=== PATIENT | male | born 1975 | race Caucasian/White ===

== ENCOUNTER 2020-08-09 12:37 | Outpatient (CLI) | payer OTHER, SELFPAY ==
[2020-08-10 14:04] LABS: SARS-CoV-2 RNA PCR Positive
== END 2020-08-09 12:38 | disposition home or self-care (01) ==
PROVIDERS: PCP Physician Assistant; Visit Provider Physician Assistant
DX: U07.1 COVID-19 (principal)
CPT/HCPCS: 87635; C9803; U0003

== ENCOUNTER 2023-06-17 13:47 | Emergency (ER) | payer OTHER, SELFPAY ==
[2023-06-17] VITALS (9 sets, daily range): BP systolic 124–150; BP diastolic 65–91; PULSE 72–82; RESP 16–18; TEMP 36.3; O2SAT 94–97
--- NOTE | ~2023-06-17 | CT_ITS ---
EXAMINATION: CT abdomen pelvis w con DATE: 06/17/2023 15:21 INDICATION: Generalized abdominal pain, nausea and vomiting. TECHNIQUE: Computed tomography (CT) of the abdomen and pelvis was performed with 100 cc Omnipaque 350 intravenous contrast. The dose-length product was 1462.90 mGy-cm. Automated exposure control and ite rative reconstruction technique were employed. COMPARISON: None. FINDINGS: Lung bases unremarkable. Heart size normal. No significant pleural or pericardial effusion. No significant vascular abnormality. There is a retroaortic left renal vein. Fatty infiltration of t he liver. The spleen, pancreas, adrenal glands and kidneys are unremarkable. There are dilated small bowel loops with air-fluid levels with transition in the right mid abdomen, axial image 114, consiste nt with obstruction. No evidence for perforation or abscess. There are several loops of mildly thicke trent small bowel which may relate to motility or underlying enteritis. The spleen, pancreas, adrenal glands and kidneys are unremarkable. Gallbladder is present. No lymphad enopathy. No free air or free fluid. IMPRESSION: 1. Small bowel obstruction with transition in the right mid abdomen. Several loops of mildly thickene d small bowel wall thickening and mucosal enhancement are present, suspicious for underlying enteriti s. Reviewed, dictated and finalized at location B. IMPRESSION: 1. Small bowel obstruction with transition in the right mid abdomen. Several lo ops of mildly thickened small bowel wall thickening and mucosal enhancement are present, suspicious for underlying enteritis.
--- NOTE | 2023-06-17 14:14 | ED.GENADULT ---
HPI - General Adult General Chief complaint: Abdominal Pain Stated complaint: abdominal pain Time Seen by Provider: 06/17/23 13:53 History of Present Illness HPI narrative: 48-year-old male presenting with abdominal pain. Patient states his symptoms started approximately 4 days ago. He describes his symptoms as epigastric abdominal pain as well as nausea vomiting and diarrhea. He denies any known sick contacts or injury. Onset (ago): day(s) Related Data Home Medications Medication Instructions Recorded Confirmed No Home Medications 06/17/23 06/17/23 Allergies Allergy/AdvReac Type Severity Reaction Status Date / Time No Known Allergies Allergy Verified 06/17/23 13:55 Exam Narrative: Tenderness to palpation in epigastric region. Negative Lui's. Negative McBurney's. All of the systems otherwise unremarkable and negative. Course Vital Signs Vital signs: Vital Signs Temperature 36.3 C L 06/17/23 13:53 Pulse Rate 81 06/17/23 13:53 Respiratory Rate 17 06/17/23 13:53 Blood Pressure 150/84 H 06/17/23 13:53 Pulse Oximetry 97 06/17/23 13:53 Oxygen Delivery Room Air 06/17/23 13:53 Temperature 36.3 C L 06/17/23 13:57 Pulse Rate 81 06/17/23 13:57 Respiratory Rate 17 06/17/23 13:57 Blood Pressure 150/84 H 06/17/23 13:57 Pulse Oximetry 97 06/17/23 13:57 Oxygen Delivery Room Air 06/17/23 13:57 Medical Decision Making [facility] Narrative Medical decision making narrative: my interpretation official read of imaging demonstrates bowel obstruction. No emergent laboratory derangements. Patient remains mildly tender. He is not nauseous or vomiting at this time. I did consult and discussed case with Dr. De La O the surgeon at [facility]. Patient to be transferred to their facility and accepted under the hospitalist service. Patient amenable to this plan. He is awaiting transport. Vital Signs Vital Signs: Vital Signs Temperature 36.3 C L 06/17/23 13:53 Pulse Rate 81 06/17/23 13:53 Respiratory Rate 17 06/17/23 13:53 Blood Pressure 150/84 H 06/17/23 13:53 Pulse Oximetry 97 06/17/23 13:53 Oxygen Delivery Room Air 06/17/23 13:53 Temperature 36.3 C L 06/17/23 13:57 Pulse Rate 81 06/17/23 13:57 Respiratory Rate 17 06/17/23 13:57 Blood Pressure 150/84 H 06/17/23 13:57 Pulse Oximetry 97 06/17/23 13:57 Oxygen Delivery Room Air 06/17/23 13:57 Lab Data Lab results reviewed: Yes I reviewed the patient's lab results. 06/17/23 14:27 06/17/23 14:27 Labs: Lab Results 06/17/23 Range/Units 14:27 WBC 6.1 (4.8-10.8) K/mm3 RBC 5.68 (4.70-6.10) M/mm3 Hgb 16.9 (14.0-18.0) g/dL Hct 50.7 (40.0-54.0) % MCV 89.3 (78.0-102.0) fL MCH 29.8 (27.0-31.0) pg MCHC 33.3 (32.0-36.0) g/dL RDW 12.3 (11.6-14.4) % Plt Count 247 (150-420) K/mm3 MPV 11.2 H (8.7-11.0) fl Immature Gran % (Auto) 0.3 H (0.0-0.0) % Neut % (Auto) 64.8 (50.0-70.0) % Lymph % (Auto) 22.3 (18.0-42.0) % [place] % (Auto) 9.6 (2.0-11.0) % Eos % (Auto) 2.3 (1.0-6.0) % Baso % (Auto) 0.7 (0.0-1.0) % Lymph # (Auto) 1.37 (1.10-4.50) K/mm3 [place] # (Auto) 0.59 (0.10-0.90) K/mm3 Eos # (Auto) 0.14 (0.02-0.50) K/mm3 Baso # (Auto) 0.04 (0.00-0.10) K/mm3 Abs Immat Gran (auto) 0.02 H (0.00-0.00) K/mm3 Absolute Neuts (auto) 4.0 (1.7-7.2) K/mm3 Absolute Nucleated RBC 0.00 (0.00-0.00) K/mm3 Nucleated RBC % 0.0 (0-0.0) % Sodium 138 (136-145) mmol/L Potassium 3.6 (3.5-5.1) mmol/L Chloride 105 (98-108) mmol/L Carbon Dioxide 25 (21-32) mmol/L Anion Gap 8 (8-16) mmol/L BUN 12 (7-18) mg/dL Creatinine 0.99 (0.70-1.30) mg/dL Estim Creat Clear Calc 109 ml/min Estimated GFR > 60 (59 - ) Glucose 170 H (70-99) mg/dL Calculated Osmolality 289 (285-295) mOsm/kg Calcium 8.8 (8.5-10.1) mg/dL Total Bilirubin 0.6 (0.00-1.00) mg/dL AST 36 (15-37) U/L ALT 69 H (16
--- NOTE | 2023-06-17 14:16 | ECG_ITS ---
Measurements Intervals [place] Rate: 76 P: 31 SD: 152 QRS: -3 QRSD: 102 T: -15 QT: 382 QTc: 432 Interpretive Statements SINUS RHYTHM MINIMAL Q WAVES- HIGH LATERAL LEADS BORDERLINE ST-T WAVE ABNORMALITY- INFERIOR LEADS BORDERLINE ECG NO PREVIOUS ECG AVAILABLE FOR COMPARISON Electronically Signed On 06-17-2023 14:58:16 CDT by Brandon Nieto D.O.
[2023-06-17] MEDS: KETOROLAC 30 MG/ML VIAL (*BKC) IV PUSH (14:23)
[2023-06-17] MEDS: SODIUM CHLORIDE 0.9% IV 1,000 ML 999 ML IV CONT (14:24)
[2023-06-17 14:42] LABS: Basophils Absolute Auto 0.04 K/mm3 (0.00-0.10); Basophils Percent Auto 0.7 % (0.0-1.0); Eosinophils Absolute Auto 0.14 K/mm3 (0.02-0.50); Eosinophils Percent Auto 2.3 % (1.0-6.0); Hematocrit 50.7 % (40.0-54.0); Hemoglobin 16.9 g/dL (14.0-18.0); Immature Granulocyte Absolute 0.02 K/mm3 (0.00-0.00); Immature Granulocyte Percent A 0.3 % (0.0-0.0); Lymphocytes Absolute Auto 1.37 K/mm3 (1.10-4.50); Lymphocytes Percent Auto 22.3 % (18.0-42.0); Mean Corpuscular HGB Conc 33.3 g/dL (32.0-36.0); Mean Corpuscular Hemoglobin 29.8 pg (27.0-31.0); Mean Corpuscular Volume 89.3 fL (78.0-102.0); Mean Platelet Volume 11.2 fl (8.7-11.0); Monocytes Absolute Auto 0.59 K/mm3 (0.10-0.90); Monocytes Percent Auto 9.6 % (2.0-11.0); Neutrophils Percent Auto 64.8 % (50.0-70.0); Platelet Count Result 247 K/mm3 (150-420); Red Blood Count 5.68 M/mm3 (4.70-6.10); Red Cell Distribution Width 12.3 % (11.6-14.4); White Blood Count 6.1 K/mm3 (4.8-10.8)
[2023-06-17 15:00] LABS: Alanine Aminotransferase 69 U/L (16-63); Albumin Level 2.8 g/dL (3.4-5.0); Alkaline Phosphatase 158 U/L (46-116); Anion Gap 8 mmol/L (8-16); Aspartate Amino Transferase 36 U/L (15-37); Bilirubin,Total 0.6 mg/dL (0.00-1.00); Blood Urea Nitrogen 12 mg/dL (7-18); Calcium 8.8 mg/dL (8.5-10.1); Carbon Dioxide 25 mmol/L (21-32); Chloride 105 mmol/L (98-108); Estimated CRCL calculation 109 ml/min; Estimated Glomerular Filt Rate > 60; Glucose 170 mg/dL (70-99); Lipase 32 U/L (16-77); Osmolality Calculated 289 mOsm/kg (285-295); Potassium 3.6 mmol/L (3.5-5.1); Sodium 138 mmol/L (136-145); Total Protein 6.7 g/dL (6.4-8.2)
[2023-06-17 16:41] LABS: Troponin I < 0.012 ng/mL (0.000-0.034)
--- NOTE | 2023-06-17 19:08 | PC.NURSE ---
patient report received from BHAVESH Ardon. Patient awaiting EMS transfer to [facility]. Per Reva, update is ambulance is awaiting return from another trip/facility.
--- NOTE | 2023-06-17 19:52 | PC.NURSE ---
RN phoned receiving facility ([facility]) to notify staff of patient decision to sign out AMA prior to transporting and has decided to ride with a friend [facility].
== END 2023-06-17 19:20 | disposition left against medical advice (07) ==
PROVIDERS: Emergency Provider Emergency Medicine; PCP Physician Assistant
DX: K56.609 Unspecified intestinal obstruction, unspecified as to partial versus complete obstruction (principal)
CPT/HCPCS: 36415; 74177; 80053; 83690; 84484; 85025; 93005; 96361; 96374; 99284; J1885; J7030; Q9967

== ENCOUNTER 2023-06-17 21:06 | Inpatient (IN) | payer OTHER, SELFPAY ==
--- NOTE | ~2023-06-17 | XR_ITS ---
EXAMINATION: XR abdomen/kub 1V DATE: 06/18/2023 00:21 INDICATION: Nasogastric tube placement. TECHNIQUE: A supine view of the abdomen was obtained. COMPARISON: None. FINDINGS: The lower abdomen is excluded. The nasogastric tube tip is in the stomach. There is dilated small bowel. IMPRESSION: 1. Nasogastric tube tip in the stomach. 2. Dilated small bowel, likely adynamic ileus. Reviewed, dictated and finalized at location A.
--- NOTE | ~2023-06-17 | XR_ITS ---
EXAMINATION: XR sm bowel follow through WS DATE: 06/18/2023 14:05 INDICATION: Small bowel obstruction. TECHNIQUE: Oral contrast was administered, and a time course of radiographs of the abdomen was obtain ed. Fluoroscopy of the small bowel was not performed. Fluoroscopy exposure time was 0 minutes. The to ashley number of images was 11. COMPARISON: CT abdomen and pelvis 06/17/2023 FINDINGS: The nasogastric tube tip is in the stomach. There are multiple dilated loops of small bowel. The dist al small bowel is decompressed. There is no focal transition point. Transit time from the stomach to proximal colon was approximately 3 hours. IMPRESSION: 1. Dilated small bowel, consistent with adynamic ileus. Reviewed, dictated and finalized at location A.
--- NOTE | ~2023-06-17 | XR_ITS ---
EXAM: XR abdomen/kub 1V DATE: 06/17/2023 21:30 HISTORY: small bowel obstruction . COMPARISON: CT abdomen pelvis, same date. FINDINGS: Clear lung bases. Multiple dilated loops of small bowel. No organomegaly. No abnormal abdo jesis calcification. Regional bones and soft tissues normal for age. IMPRESSION: Small bowel obstruction. Reviewed, dictated and finalized at location K. IMPRESSION: Small bowel obstruction.
--- NOTE | 2023-06-17 20:32 | PC.NURSE ---
This patient, Jemal Hodges, was admitted to [facility] [place] Surg Room 327-01. Patient/family oriented to hospital policies and general routines including ID bracelet, bed and alarms, visiting hours, pain management, procedures, bathroom and other care routines, personal items, smoking policy, room service/diet, and visiting hours. Information on how to activate the Rapid Response Team has been discussed. Patient/Family are encouraged to report perceived risks to care and to ask questions if they do not understand what they are told or what they should do.
[2023-06-17 20:37] VITALS: BMI 36.8
[2023-06-17 20:58] VITALS: BP 141/92; PULSE 77; RESP 18; TEMP 36.7; O2SAT 98
--- NOTE | 2023-06-17 21:03 | PM.IMHP ---
H&P: HPI History of Present Illness Date/Time: 06/17/23 21:30 Chief Complaint: Small-bowel obstruction. Narrative: This is a very pleasant 48-year-old male with history of what sounds like pyloromyotomy as an who is being directly admitted to the medical floor from an outside facility ER with a small-bowel obstruction for treatment and surgery consultation. The patient provides the following history. Symptoms started last around lunchtime: ?it felt like my stomach knotted up. He developed nausea shortly thereafter vomited about an hour later which made him feel much better. On Saturday after eating pizza for lunch he developed similar symptoms, once again with vomiting. He was seen at urgent care and was told that he may have food poisoning. Unfortunately he has continued to have this pain in his stomach and he has not been able to hold down any food. He has been trying to drink a little bit of water here and there and sometimes he is able to hold down but other times he vomits not long after. He has not had a good bowel movement in the last 4 days and reports passing only small amounts of liquid stool. He has never had similar symptoms. He denies recent travel and sick contacts. No hematemesis, melena, or hematochezia. In the ED at the outside facility: Vital signs were stable blood pressures have been running a bit high. Labs were significant for WBC of 6.1, hemoglobin 16.9, hematocrit 50.7, platelet 247, sodium 138, potassium 3.6, BUN 12, creatinine 0.99, glucose 170, total bilirubin 0.6, AST 36, ALT 69, alkaline phosphatase 158, lipase 32. CT of the abdomen pelvis shows small-bowel obstruction with transition in the right mid abdomen with several loops of mildly thickened small bowel wall thickening and mucosal enhancement suspicious for enteritis. Transfer was initiated to [facility] as above. At the time my evaluation he continues to have this not like discomfort in his stomach. He has not vomited but he has not had any food or drink. Review of Systems Review of Systems: Twelve systems were reviewed and are negative except for as per HPI. [facility] Past Medical History Medical History No pertinent past medical history Surgical History Surgical History (Updated 06/18/23 @ 14:03 by Felicia Louis PA-C) History of abdominal surgery History of obstruction, possible pyloric stenosis as an infant, resulting in surgery immediately after . Social History Social History (Updated 06/18/23 @ 14:04 by Felicia Louis PA-C) Social History: Surrogate medical decision maker: Stephanie Hodges, spouse. Code status: Full code. Smoking status: Never smoker Alcohol intake: never Substance use: never Substance use type: does not use Lack of Transportation: No Lack of Food: Never True Current Housing: I Have Housing Concerned About Future Housing: No Difficulty Paying Gas/Electric Bills: No Difficulty Paying for Meds: No Currently Unemployed: No Education: High School Diploma/GED Difficulty w/ Childcare or Family Care: No Additional living arrangements comments: Lives with and children in [place]. Additional occupation/education comments: [employer]. Spiritual care concerns: No Meds Home Medications and Allergies Home Medications Medication Instructions Recorded Confirmed Type No Home Medications 06/17/23 06/17/23 History Allergies Allergy/AdvReac Type Severity Reaction Status Date / Time No Known Allergies Allergy Verified 06/17/23 13:55 Vital Signs Vital Signs - 24 hr 06/17/23 20:58 Temperature 98.0 F Pulse Rate 77 Respiratory Rate 18 Blood Pressure 141/92 H Pulse Oximetry 98 Exam Const: Other: Well-developed, mildly ill-appearing male sitting up in bed in no acute distress. Weight: 123.2 kg. BMI: 36.8. HENMT: Other: Normocephalic, atraumatic. Nares pain bilaterally
[2023-06-17] MEDS: LORazepam INJ (*CRX) 2 MG/ML VIAL 0.5 MG IV PUSH (23:21)
[2023-06-17] MEDS: LIDOCAINE HCL 2% GEL UROJET 10 ML PKG MUCOUS MEM (23:21)
--- NOTE | 2023-06-18 00:03 | PC.NURSE ---
ng inserted x1 attempt to 68 cm R nare awaiting KUB for confirmation of placement
[2023-06-18] MEDS: MORPHINE SULFATE (*CRX) 2 MG/ML INJ IV PUSH ×2 (00:57→05:41)
[2023-06-18] MEDS: ONDANSETRON INJ 4 MG/2 ML VIAL IV PUSH ×3 (00:57→14:52)
--- NOTE | 2023-06-18 00:57 | PC.NURSE ---
ab xr reviewed by do alarcon pt placed on low intermittent suction.
[2023-06-18] MEDS: BENZOCAINE/MENTHOL (*BKC) 18 EA LOZENGE 1 LOZENGE PO (05:42)
[2023-06-18 06:00] VITALS: BP 141/85; PULSE 93; RESP 16; TEMP 36.8; O2SAT 98
[2023-06-18 06:38] LABS: Hematocrit 48.1 % (42.0-52.0); Hemoglobin 15.9 g/dL (14.0-18.0); Mean Corpuscular HGB Conc 33.1 g/dl (32-36); Mean Corpuscular Volume 90.8 fl (80-100); Mean Platelet Volume 10.7 fl (7.4-10.4); Platelet Count Result 220 k/mm3 (150-375); Red Cell Distribution Width 12.3 % (11.5-14.5); White Blood Count 4.9 K/mm3 (4.5-10.0)
[2023-06-18 06:45] LABS: Hemoglobin A1C 7.9 % (<5.7)
[2023-06-18 06:47] LABS: Alanine Aminotransferase 60 U/L (6-50); Albumin Level 3.3 g/dL (3.5-5.1); Alkaline Phosphatase 120 U/L (38-126); Anion Gap 6 mmol/L (8-16); Aspartate Amino Transferase 41 U/L (17-59); Bilirubin,Total 0.9 mg/dL (0.2-1.3); Blood Urea Nitrogen 11 mg/dL (9-20); Carbon Dioxide 26 mmol/L (22-30); Chloride 105 mmol/L (98-107); Estimated CRCL calculation 119 ml/min; Estimated Glomerular Filt Rate > 60; Glucose 143 mg/dL (65-110); Potassium 3.6 mmol/L (3.4-5.0); Sodium 137 mmol/L (137-145)
[2023-06-18 08:00] VITALS: O2SAT 98
[2023-06-18] MEDS: DEXTROSE 5%/0.9% SOD CHL 1,000 ML 100 ML IV CONT (09:24)
[2023-06-18] MEDS: PANTOPRAZOLE SODIUM IV 40 MG VIAL IV PUSH (09:29)
--- NOTE | 2023-06-18 09:50 | PM.CNGS ---
Assessment and Plan Assessment and plan (1) Small bowel obstruction: Code(s): K56.609 - Unspecified intestinal obstruction, unspecified as to partial versus complete obstruction Status: Acute Assessment and Plan: CT suggests small bowel obstruction with transition point in the right mid abdomen. Continue NG decompression, bowel rest, and IV fluids. Already clinically improving. No peritoneal signs on exam. Will order water-soluble small-bowel follow-through today. (2) Gastroenteritis: Code(s): K52.9 - Noninfective gastroenteritis and colitis, unspecified Status: Acute Assessment and Plan: CT suggests possible enteritis. This correlates with his history of vomiting and diarrhea x 3-4 days. Continue medical treatment and IV fluid hydration. (3) Newly diagnosed diabetes: Code(s): E11.9 - Type 2 diabetes mellitus without complications Status: Acute Assessment and Plan: Elevated glucose on admission, hgb A1C 7.9. This is new for the patient. Management per primary service. Plan I have discussed the patient's case and plan of care with Dr. Moralez. Thank you for allowing us to see the patient in consultation and we will continue to follow along with you. History of Present Illness Consult details Consult date: 06/18/23 Reason for consult: other (Small-bowel obstruction) Requesting physician: Amanda Presley MD Narrative: This is a 47-year-old man who presented to [facility] for evaluation of abdominal pain and vomiting. He reports last he developed generalized abdominal pain following his lunch. The pain was so severe it made him vomit. He continued to vomit and developed diarrhea. He had multiple episodes of watery diarrhea over the next few days. Every time he ate, he continued to vomit. Saturday, he presented to the urgent care for evaluation. In the urgent care, they suggested he may have food poisoning and sent him home. He continued to have persistent abdominal pain with vomiting and diarrhea. He developed more bloating and his diarrhea resolved yesterday. Due to his persistent pain, he presented to the ER for evaluation. Labs were unremarkable. CT scan abdomen pelvis showed small-bowel obstruction with transition point in the right mid abdomen, also several loops of mildly thickened small bowel wall thickening and mucosal enhancement suspicious for underlying enteritis. The patient was admitted to the hospitalist service. He had an NG tube placed. Placement confirmed on x-ray. Our service has been consulted for the small-bowel obstruction. He is seen this morning. He had 400 cc out of his NG tube since placement. He reports feeling much better this morning. No longer having any abdominal pain. He reports flatus today. No bowel movements since liquid diarrhea yesterday morning. Denies ever having a bowel obstruction in the past. He does report having surgery as an , potentially for pyloric stenosis. No other abdominal surgeries. No one with similar sick symptoms. No recent travel. No recent use of antibiotics. Review of Systems Review of Systems: All systems reviewed & are unremarkable except as noted in HPI and below PMFSH Past Medical History Medical History No pertinent past medical history Surgical History Surgical History History of abdominal surgery History of obstruction, possible pyloric stenosis as an infant, resulting in surgery immediately after Social History Social History Smoking status: Never smoker Alcohol intake: never Substance use: never Substance use type: does not use Lack of Transportation: No Lack of Food: Never True Current Housing: I Have Housing Concerned About Future Housing: No Difficulty Paying Gas/Electric Bills: No Difficulty Pay
--- NOTE | 2023-06-18 11:04 | PM.IMPN ---
Progress Note: A&P Assessment and Plan (1) Small bowel obstruction: Code(s): K56.609 - Unspecified intestinal obstruction, unspecified as to partial versus complete obstruction Status: Acute Assessment and Plan: Surgery consult NG tube. NPO Monitor (2) Hyperglycemia: Code(s): R73.9 - Hyperglycemia, unspecified Status: Acute Assessment and Plan: Monitor blood sugars Subjective Date/time seen: 06/18/23 11:04 Interval history: NG tube in place. Abdominal pain improved. Exam Const: Other: Well-developed, mildly ill-appearing male sitting up in bed in no acute distress. Weight: 123.2 kg. BMI: 36.8. HENMT: Other: Normocephalic, atraumatic. Nares pain bilaterally. Tacky mucous membranes. Eyes: Other: Pupils are reactive. Extraocular motions intact. Sclerae anicteric. Neck: Other: Supple. Resp: Other: Respirations are nonlabored and lungs are clear to auscultation. Cardio: Other: Regular rate and rhythm with normal S1-S2. GI: Other: Abdomen is soft and distended. High-pitched tinkling bowel sounds heard in the right mid upper abdomen. He is tender to palpation and percussion in the periumbilical region. No guarding or rebound tenderness. Skin: Other: Warm and dry. Neuro: Other: Alert. Cranial nerves 2-12 are grossly intact. No gross focal deficits to casual conversation. Extrem: Other: No cyanosis, clubbing, or edema. Peripheral pulses intact. Psych: Other: Pleasant and cooperative. Appropriate mood and affect. Objective Data Vital Signs Vital Signs: Vital Signs - 24 hr 06/17/23 20:58 06/18/23 06:00 06/18/23 08:00 Temperature 98.0 F 98.2 F Pulse Rate 77 93 Respiratory Rate 18 16 Blood Pressure 141/92 H 141/85 H Pulse Oximetry 98 98 98 Oxygen Delivery Room Air Intake/Output Intake/Output: Intake & Output 06/15/23 06/16/23 06/17/23 06/18/23 23:59 23:59 23:59 23:59 Output Total 400 Balance -400 Meds/Results Medications: Active Medications Generic Name Dose Route Start Last Admin Trade Name Freq PRN Reason Stop Dose Admin Benzocaine 1 lozenge 06/18/23 05:37 06/18/23 05:42 Benzocaine/Menthol (*Bkc) 18 Ea Lozenge PO 1 lozenge PRN PRN Administration Sore Throat Dextrose/Sodium Chloride 1,000 mls @ 100 mls/hr 06/18/23 08:45 06/18/23 09:24 Dextrose 5% Sodium Chloride 0.9% IV CONT 100 mls/hr .Q10H DAKOTA Administration Morphine Sulfate 2 mg 06/17/23 21:10 06/18/23 05:41 Morphine Sulfate (*Crx) 2 Mg/Ml Inj IV PUSH 2 mg Q4H PRN Administration Pain Rated 7-10 Ondansetron HCl 4 mg 06/17/23 21:10 06/18/23 06:40 Ondansetron Inj 4 Mg/2 Ml Vial IV PUSH 4 mg Q6H PRN Administration Nausea And Vomiting Pantoprazole Sodium 40 mg 06/18/23 09:15 06/18/23 09:29 Pantoprazole Sodium Iv 40 Mg Vial IV PUSH 40 mg QAM DAKOTA Administration Radiology Results: ITS Impressions Abdomen X-Ray 06/18/23 06:08 IMPRESSION: 1. Nasogastric tube tip in the stomach. 2. Dilated small bowel, likely adynamic ileus. Labs Labs: Laboratory Results - last 24 hr 06/18/23 06:19 WBC 4.9 RBC 5.30 Hgb 15.9 Hct 48.1 MCV 90.8 MCH 30.0 MCHC 33.1 RDW 12.3 Plt Count 220 MPV 10.7 H Sodium 137 Potassium 3.6 Chloride 105 Carbon Dioxide 26 Anion Gap 6 L BUN 11 Creatinine 0.90 Estim Creat Clear Calc 119 Estimated GFR > 60 Glucose 143 H Hemoglobin A1c 7.9 H Calcium 8.0 L Magnesium 2.0 Total Bilirubin 0.9 AST 41 ALT 60 H Alkaline Phosphatase 120 Total Protein 6.0 L Albumin 3.3 L
[2023-06-18 14:00] VITALS: BP 127/82; PULSE 80; RESP 20; TEMP 36.5; O2SAT 94
[2023-06-18 20:00] VITALS: PULSE 80; RESP 20; O2SAT 94
[2023-06-18 22:00] VITALS: BP 121/73; PULSE 79; RESP 18; TEMP 36.7; O2SAT 95
[2023-06-19] MEDS: DEXTROSE 5%/0.9% SOD CHL 1,000 ML 100 ML IV CONT (00:56)
[2023-06-19 06:00] VITALS: BP 121/75; PULSE 72; RESP 16; TEMP 36.7; O2SAT 97
[2023-06-19 07:55] LABS: Anion Gap 5 mmol/L (8-16); Blood Urea Nitrogen 9 mg/dL (9-20); Calcium 7.9 mg/dL (8.4-10.2); Carbon Dioxide 25 mmol/L (22-30); Chloride 104 mmol/L (98-107); Estimated CRCL calculation 108 ml/min; Estimated Glomerular Filt Rate > 60; Glucose 201 mg/dL (65-110); Potassium 3.5 mmol/L (3.4-5.0); Sodium 134 mmol/L (137-145)
[2023-06-19] MEDS: PANTOPRAZOLE SODIUM IV 40 MG VIAL IV PUSH (07:55)
[2023-06-19 08:00] VITALS: O2SAT 97
--- NOTE | 2023-06-19 11:43 | PM.PNGS ---
Progress Note: A&P Assessment and Plan (1) Small bowel obstruction: Code(s): K56.609 - Unspecified intestinal obstruction, unspecified as to partial versus complete obstruction Status: Acute Assessment and Plan: SBS reviewed, likely ileus from gastroenteritis, exam benign, NG out, ADAT, ok to dc home once vishal diet (2) Gastroenteritis: Code(s): K52.9 - Noninfective gastroenteritis and colitis, unspecified Status: Acute Assessment and Plan: supportive care Subjective Subjective Date/Time Seen: 06/19/23 11:43 Interval history: feels better, +bowel fxn, no further N/V Review of Systems Review of Systems: All systems reviewed & are unremarkable except as noted in HPI and below Exam Const: General: cooperative, comfortable and no acute distress Resp: Auscultation: clear to auscultation bilaterally Cardio: Rate: regular rate Rhythm: regular rhythm GI: Inspection: normal to inspection and distended GI Palp: No abdominal tenderness and Yes Soft to palpation Objective Data Vital Signs Vital Signs: Vital Signs - 24 hr 06/18/23 14:00 06/18/23 20:00 06/18/23 22:00 Temperature 36.5 C 36.7 C Pulse Rate 80 80 79 Respiratory Rate 20 20 18 Blood Pressure 127/82 121/73 Pulse Oximetry 94 94 95 Oxygen Delivery Room Air 06/19/23 06:00 06/19/23 08:00 Temperature 36.7 C Pulse Rate 72 Respiratory Rate 16 Blood Pressure 121/75 Pulse Oximetry 97 97 Oxygen Delivery Room Air Intake/Output Intake/Output: Intake & Output 06/16/23 06/17/23 06/18/23 06/19/23 23:59 23:59 23:59 23:59 Intake Total 1460 900 Output Total 400 Balance 1060 900 Meds/Results Medications: Active Medications Generic Name Dose Route Start Last Admin Trade Name Freq PRN Reason Stop Dose Admin Benzocaine 1 lozenge 06/18/23 05:37 06/18/23 05:42 Benzocaine/Menthol (*Bkc) 18 Ea Lozenge PO 1 lozenge PRN PRN Administration Sore Throat Dextrose 12.5 gm 06/19/23 08:26 Dextrose 50% 25 Gm/50 Ml Syringe IV PUSH PRN PRN Hypoglycemia Protocol Glucagon 1 mg 06/19/23 08:26 Glucagon For Inj 1 Mg Vial IM PRN PRN Hypoglycemia Protocol Glucose 15 gm 06/19/23 08:26 Glucose Oral Gel 15 Gm Of Glucse In 37.5 Gm Tube PO PRN PRN Hypoglycemia Protocol Dextrose 1,000 mls @ 100 mls/hr 06/19/23 08:26 Dextrose 5% 1,000 Ml IVPB PRN PRN Hypoglycemia Protocol Insulin Aspart 2 - 5 units 06/19/23 12:00 Insulin Aspart (*Bkc) 100 Units/Ml SUB-Q TIDWM DAKOTA Protocol Insulin Aspart 1 - 2 units 06/19/23 21:00 Insulin Aspart (*Bkc) 100 Units/Ml SUB-Q HS DAKOTA Protocol Morphine Sulfate 2 mg 06/17/23 21:10 06/18/23 05:41 Morphine Sulfate (*Crx) 2 Mg/Ml Inj IV PUSH 2 mg Q4H PRN Administration Pain Rated 7-10 Ondansetron HCl 4 mg 06/17/23 21:10 06/18/23 14:52 Ondansetron Inj 4 Mg/2 Ml Vial IV PUSH 4 mg Q6H PRN Administration Nausea And Vomiting Pantoprazole Sodium 40 mg 06/18/23 09:15 06/19/23 07:55 Pantoprazole Sodium Iv 40 Mg Vial IV PUSH 40 mg QAM DAKOTA Administration Radiology Results: ITS Impressions Abdomen X-Ray 06/18/23 06:08 IMPRESSION: 1. Nasogastric tube tip in the stomach. 2. Dilated small bowel, likely adynamic ileus. Small Bowel X-Ray 06/18/23 14:14 IMPRESSION: 1. Dilated small bowel, consistent with adynamic ileus. Labs Labs: Laboratory Results - last 24 hr 06/19/23 07:25 Sodium 134 L Potassium 3.5 Chloride 104 Carbon Dioxide 25 Anion Gap 5 L BUN 9 Creatinine 1.00 Estim Creat Clear Calc 108 Estimated GFR > 60 Glucose 201 H Calcium 7.9 L
[2023-06-19 11:54] LABS: Glucose Point of Care 150 mg/dl (65-105)
--- NOTE | 2023-06-19 11:57 | PC.NURSE ---
Dr Shine notified of holding am scheduled insulin due to glucose 79
[2023-06-19 14:00] VITALS: BP 136/85; PULSE 76; RESP 18; TEMP 36.1; O2SAT 97
--- NOTE | 2023-06-19 15:31 | PM.IMPN ---
Progress Note: A&P Assessment and Plan (1) Small bowel obstruction: Code(s): K56.609 - Unspecified intestinal obstruction, unspecified as to partial versus complete obstruction Status: Acute Assessment and Plan: CT abdomen pelvis revealing small bowel obstruction with transition in the right mid abdomen with several loops of mildly thickened small bowel wall thickening and mucosal enhancement suspicious for enteritis. NG tube placed and removed on 06/18/2023 Patient passing gas No bowel movement yet. Diet advanced as tolerated. (2) Hyperglycemia: Code(s): R73.9 - Hyperglycemia, unspecified Status: Acute Assessment and Plan: Patient with a hemoglobin A1c of 7.9. Not a known diabetic. he is very apprehensive to start any form of medication. Patient does not have a PCP. Advised patient to start with metformin and follow-up with a primary care provider of his choosing. Sliding scale with flaco [place] while hospitalized. Subjective Date/time seen: 06/19/23 15:31 Interval history: Discussion about diabetes with the patient. Discussed with patient the dangers of not keeping blood sugar under control. Patient was willing to start metformin and follow-up with primary care provider. He much prefers to have diet lifestyle modifications done 1st. Advised that he start diet lifestyle modifications along with low-dose metformin and a follow-up with a primary care provider and helps to get off oral medications soon. He was understanding of this. He admits to passing gas but no bowel movement yet. Diet advanced as tolerated. Exam Narrative: GENERAL: Comfortable, no acute distress HENMT: moist mucous membranes EYES: EOM intact b/l NECK: no lymphadenopathy RESPIRATORY: clear to auscultation CARDIO: RRR GI: soft, nontender, bowel sounds present SKIN: no rashes EXTREMITIES: no edema, redness or tenderness Objective Data Vital Signs Vital Signs: Vital Signs - 24 hr 06/18/23 20:00 06/18/23 22:00 06/19/23 06:00 Temperature 98.1 F 98.0 F Pulse Rate 80 79 72 Respiratory Rate 20 18 16 Blood Pressure 121/73 121/75 Pulse Oximetry 94 95 97 Oxygen Delivery Room Air 06/19/23 08:00 06/19/23 14:00 Temperature 97 F L Pulse Rate 76 Respiratory Rate 18 Blood Pressure 136/85 Pulse Oximetry 97 97 Oxygen Delivery Room Air Intake/Output Intake/Output: Intake & Output 06/16/23 06/17/23 06/18/23 06/19/23 23:59 23:59 23:59 23:59 Intake Total 1460 1020 Output Total 400 Balance 1060 1020 Meds/Results Medications: Active Medications Generic Name Dose Route Start Last Admin Trade Name Freq PRN Reason Stop Dose Admin Benzocaine 1 lozenge 06/18/23 05:37 06/18/23 05:42 Benzocaine/Menthol (*Bkc) 18 Ea Lozenge PO 1 lozenge PRN PRN Administration Sore Throat Dextrose 12.5 gm 06/19/23 08:26 Dextrose 50% 25 Gm/50 Ml Syringe IV PUSH PRN PRN Hypoglycemia Protocol Glucagon 1 mg 06/19/23 08:26 Glucagon For Inj 1 Mg Vial IM PRN PRN Hypoglycemia Protocol Glucose 15 gm 06/19/23 08:26 Glucose Oral Gel 15 Gm Of Glucse In 37.5 Gm Tube PO PRN PRN Hypoglycemia Protocol Dextrose 1,000 mls @ 100 mls/hr 06/19/23 08:26 Dextrose 5% 1,000 Ml IVPB PRN PRN Hypoglycemia Protocol Insulin Aspart 2 - 5 units 06/19/23 12:00 06/19/23 11:56 Insulin Aspart (*Bkc) 100 Units/Ml SUB-Q Not Given [facility] Protocol Insulin Aspart 1 - 2 units 06/19/23 21:00 Insulin Aspart (*Bkc) 100 Units/Ml SUB-Q HS [facility] Protocol Morphine Sulfate 2 mg 06/17/23 21:10 06/18/23 05:41 Morphine Sulfate (*Crx) 2 Mg/Ml Inj IV PUSH 2 mg Q4H PRN Administration Pain Rated 7-10 Ondansetron HCl 4 mg 06/17/23 21:10 06/18/23 14:52 Ondansetron Inj 4 Mg/2 Ml Vial IV PUSH 4 mg Q6H PRN Administration Nausea And Vomiting Pantoprazole Sodi
[2023-06-19 16:52] LABS: Glucose Point of Care 140 mg/dl (65-105)
[2023-06-19 21:00] LABS: Glucose Point of Care 175 mg/dl (65-105)
[2023-06-19 21:22] VITALS: BP 155/87; PULSE 76; RESP 20; TEMP 36.5; O2SAT 94
[2023-06-20 06:00] VITALS: BP 131/75; PULSE 70; RESP 18; TEMP 36.9; O2SAT 97
[2023-06-20 06:30] LABS: Basophils Absolute Auto 0.1 K/mm3 (0.0-0.1); Basophils Percent Auto 0.8 % (0.2-1.2); Eosinophils Absolute Auto 0.2 K/mm3 (0-0.3); Eosinophils Percent Auto 2.7 % (0-4.4); Hematocrit 48.4 % (42.0-52.0); Hemoglobin 15.8 g/dL (14.0-18.0); Immature Granulocyte Absolute 0.03 K/mm3 (0.00-0.031); Immature Granulocyte Percent A 0.5 % (0-0.5); Lymphocytes Absolute Auto 1.39 K/mm3 (0.9-3.2); Lymphocytes Percent Auto 23.5 % (18.3-44.2); Mean Corpuscular HGB Conc 32.6 g/dl (32-36); Mean Corpuscular Hemoglobin 29.6 pg (26-34); Mean Corpuscular Volume 90.6 fl (80-100); Mean Platelet Volume 10.9 fl (7.4-10.4); Monocytes Absolute Auto 0.7 K/mm3 (0.1-0.6); Monocytes Percent Auto 12.2 % (2.6-8.5); Neutrophils Absolute Auto 3.6 K/mm3 (1.3-6.7); Neutrophils Percent Auto 60.3 % (45.5-73.1); Platelet Count Result 228 k/mm3 (150-375); Red Blood Count 5.34 M/mm3 (4.6-6.20); Red Cell Distribution Width 12.6 % (11.5-14.5); White Blood Count 5.9 K/mm3 (4.5-10.0)
[2023-06-20 06:38] LABS: Alanine Aminotransferase 50 U/L (6-50); Albumin Level 3.3 g/dL (3.5-5.1); Alkaline Phosphatase 116 U/L (38-126); Anion Gap 5 mmol/L (8-16); Aspartate Amino Transferase 36 U/L (17-59); Bilirubin,Total 0.8 mg/dL (0.2-1.3); Blood Urea Nitrogen 8 mg/dL (9-20); Calcium 8.2 mg/dL (8.4-10.2); Carbon Dioxide 26 mmol/L (22-30); Chloride 104 mmol/L (98-107); Estimated CRCL calculation 119 ml/min; Estimated Glomerular Filt Rate > 60; Glucose 157 mg/dL (65-110); Potassium 3.6 mmol/L (3.4-5.0); Sodium 135 mmol/L (137-145)
[2023-06-20 07:41] LABS: Glucose Point of Care 160 mg/dl (65-105)
[2023-06-20] MEDS: PANTOPRAZOLE SODIUM IV 40 MG VIAL IV PUSH (08:58)
--- NOTE | 2023-06-20 11:06 | PM.DS ---
DS: Admitting Diagnosis Discharge Date 06/20/23 Admitting Diagnosis Small-bowel obstruction DS: Discharge Diagnosis Discharge Diagnosis (1) Small bowel obstruction: Code(s): K56.609 - Unspecified intestinal obstruction, unspecified as to partial versus complete obstruction Status: Acute (2) Hyperglycemia: Code(s): R73.9 - Hyperglycemia, unspecified Status: Acute DS: Summary Hospital Course Hospital Course: This is a very pleasant 48-year-old male who was directly admitted to the medical floor from outside facility with a small-bowel obstruction. At the time he arrived to the facility his vital signs were stable. he had elevated hemoglobin hematocrit indicating dehydration with a glucose of 170. Repeat CT abdomen pelvis showing small bowel obstruction in general surgery was consulted. NG tube placed. Patient has small-bowel follow-through on 06/18/2023 that showed adynamic ileus and NG tube was removed. Patient started having gas and had large bowel movement after small-bowel follow-through. His diet was advanced as tolerated. During this time he was found to have a hemoglobin A1c of 7.9. Education was given to the patient on the need for diabetic management and he was unsure about whether not he was going to take any medications or not. The risks were discussed with the patient and he was willing to start on p.o. diabetic medication as well as diet and exercise modifications. Time Spent with Patient Time attestation: Total time spent providing and/or coordinating discharge services: Exam Narrative: GENERAL: Comfortable, no acute distress HENMT: moist mucous membranes EYES: EOM intact b/l NECK: no lymphadenopathy RESPIRATORY: clear to auscultation CARDIO: RRR GI: soft, nontender, bowel sounds present SKIN: no rashes EXTREMITIES: no edema, redness or tenderness DS: Data Data Completed and Pending Labs on day of discharge: Labs from last 24 hours 06/20/23 06/20/23 06/19/23 07:20 06:19 20:55 WBC 5.9 RBC 5.34 Hgb 15.8 Hct 48.4 MCV 90.6 MCH 29.6 MCHC 32.6 RDW 12.6 Plt Count 228 MPV 10.9 H Immature Gran % (Auto) 0.5 Neut % (Auto) 60.3 Lymph % (Auto) 23.5 Payne % (Auto) 12.2 H Eos % (Auto) 2.7 Baso % (Auto) 0.8 Lymph # (Auto) 1.39 Payne # (Auto) 0.7 H Eos # (Auto) 0.2 Baso # (Auto) 0.1 Abs Immat Gran (auto) 0.03 Absolute Neuts (auto) 3.6 Absolute Nucleated RBC 0.0 Nucleated RBC % 0.0 Sodium 135 L Potassium 3.6 Chloride 104 Carbon Dioxide 26 Anion Gap 5 L BUN 8 L Creatinine 0.90 Estim Creat Clear Calc 119 Estimated GFR > 60 Glucose 157 H POC Capillary Glucose 160 H 175 H Calcium 8.2 L Total Bilirubin 0.8 AST 36 ALT 50 Alkaline Phosphatase 116 Total Protein 6.0 L Albumin 3.3 L 06/19/23 06/19/23 16:43 11:42 WBC RBC Hgb Hct MCV MCH MCHC RDW Plt Count MPV Immature Gran % (Auto) Neut % (Auto) Lymph % (Auto) Payne % (Auto) Eos % (Auto) Baso % (Auto) Lymph # (Auto) Payne # (Auto) Eos # (Auto) Baso # (Auto) Abs Immat Gran (auto) Absolute Neuts (auto) Absolute Nucleated RBC Nucleated RBC % Sodium Potassium Chloride Carbon Dioxide Anion Gap BUN Creatinine Estim Creat Clear Calc Estimated GFR Glucose POC Capillary Glucose 140 H 150 H Calcium Total Bilirubin AST ALT Alkaline Phosphatase Total Protein Albumin Discharge Plan Discharge Attending physician on discharge: Israel Vicente Consulting providers: Evelyn Moralez Discharging Clinician: Lorrie Rodriguez Patient Disposition: Home, Self-Care Activity: as tolerated Diet: diabetic Discharge Instructions: Please establish with a primary care provider. DIABETES: New medications: Metformin 500 mg twice a day. Please take all medications as presc
== END 2023-06-20 12:14 | disposition home or self-care (01) | DRG 390 ==
PROVIDERS: Physician Assistant; Admitting Provider Chiropractor; PCP Physician Assistant; Visit Provider Internal Medicine Critical Care Medicine
DX: K56.609 Unspecified intestinal obstruction, unspecified as to partial versus complete obstruction (principal); K52.9 Noninfective gastroenteritis and colitis, unspecified; E11.65 Type 2 diabetes mellitus with hyperglycemia; E66.9 Obesity, unspecified; Z68.36 Body mass index [BMI] 36.0-36.9, adult
CPT/HCPCS: 36415; 74018; 74250; 80048; 80053; 82948; 83036; 83735; 85025; 85027; A9270; C9113; G0378; G0379; J2060; J2270; J2405; J7042